=== PATIENT | female | born 1930 | race Two or more races ===

== ENCOUNTER 2021-08-18 17:04 | Emergency (ER) | payer OTHER ==
[~2021-08-18] VITALS: Ht 157.5 cm; Wt 58.1 kg
[2021-08-18] MEDS ORDERED: NORVASC5 MG (17:46)
[2021-08-18] MEDS ORDERED: TOPROL XL25 MG (17:46)
[2021-08-18] MEDS ORDERED: DIOVAN HCT 1601 EAC1 (17:46)
[2021-08-18] MEDS ORDERED: CRESTOR5 MG (17:46)
[2021-08-18] MEDS ORDERED: DETROL LA4 MG (17:47)
== END 2021-08-18 20:50 | disposition home or self-care (01) ==
LOC: ER 17:04
DX: I10 Essential (primary) hypertension (principal); E11.9 Type 2 diabetes mellitus without complications; Z91.041 Radiographic dye allergy status